=== PATIENT | female | born 1960 | race Caucasian/White ===

== ENCOUNTER → 2017-10-12 | Outpatient (CLI) | payer OTHER ==
[~2017-10-12] MED LIST: ADVAIR 500/501 DISK IH; ASMANEX TW30 INHALAT PO; ASPIRIN81 M1 PO; Aspirin E.C. PO; BENADRYL25 MG PO; BENICAR HCT1 TABLET PO; DELTASONE20 M1 PO; DULERA 100 MCG/13 GM IH; FLUOXETINE HCL40 MG PO; HYCODAN SYRUP5 ML PO; LEVOCETIRIZINE D5 MG PO; LEVOTHYROXINE125 MCG; LEVOTHYROXINE137 MCG PO; LOSARTAN-HCTZ1 EACH PO; LUMITENE30 MG PO; LYRICA150 MG PO; LYRICA75 MG PO; Levothroid,Synthroid PO; MONTELUKAST SOD10 MG PO; MOTRIN800 MG PO; Motrin PO; NEXIUM40 MG PO; PREMARIN1.25 MG PO; PREVACID30 MG PO; PROVENTIL,2.5 MG/0.5 IH; PROVENTIL,200 INHALA IH; RANITIDINE HCL300 MG PO; SIMVASTATIN40 MG PO; SINGULAIR10 MG PO; SPIRIVA1 INHALATI IH; Singulair PO; TESSALON PERLE100 MG PO; TESSALON200 MG PO; TOPAMAX25 MG PO; TOPIRAMATE25 MG PO; TRAMADOL HCL50 MG PO; TRULICITY0.75 MG/0. SC; TYLENOL PM EX-1 EACH PO; Tessalon Perle PO; VITAMIN B-COMP1 EAC4 PO; VITAMIN E400 UNI3 PO; VITAMIN E400 UNIT PO; WOMEN'S 50+ DA1 EAC1 PO; ZOCOR40 MG PO
== END | disposition home or self-care (01) ==
LOC: NUC 10-11 08:30
DX: R00.2 Palpitations (principal); R07.9 Chest pain, unspecified; R94.31 Abnormal electrocardiogram [ECG] [EKG]
CPT/HCPCS: 78452; 78999; 93017; A9500; J2785